=== PATIENT | female | born 1955 | race Two or more races ===

== ENCOUNTER 2022-10-17 06:35 | Emergency (ER) | payer OTHER ==
[~2022-10-17] VITALS: Ht 162.6 cm; Wt 99.8 kg
--- NOTE | 2022-10-17 06:40 | NUR ---
[id number] C/O ABD PAIN RADIATING TO BACK X TODAY. DENIES N/V. PT AAOX4, MOANING, CRYING. PLACED IN BED, VITALS CHECKED.
[2022-10-17] MEDS ORDERED: ONDANSETRON HCL/PF 4 MG/2 ML VIAL ONE ×2 (06:58→08:49)
[2022-10-17] MEDS ORDERED: MORPHINE SULFATE INJ 4 MG/ML DISP.SYRIN ONE (06:58)
[2022-10-17] MEDS ORDERED: MORPHINE SULFATE INJ 2 MG/ML DISP.SYRIN IV ONE ×2 (07:00→08:00)
[2022-10-17] MEDS ORDERED: IV NS 0.9% 500 ML BAG IV ONE (07:00)
[2022-10-17] MEDS ORDERED: ONDANSETRON HCL/PF 4 MG/2 ML VIAL IVP ONE (07:00)
--- NOTE | 2022-10-17 07:08 | NUR ---
20GA TO RIGHT FOREARM ESTABLISHED, BLOOD WORK COLLECTED & SENT TO LAB
--- NOTE | 2022-10-17 07:23 | NUR ---
URINE CUP OFFERED
[2022-10-17 07:48] LABS: CALCIUM, SERUM 9.4 mg/dL (8.5-10.1)
[2022-10-17 07:55] LABS: ALBUMIN 3.6 g/dL (3.4-5.0); BILIRUBIN,DIRECT 0.1 mg/dL (0.0-0.2); BILIRUBIN,TOTAL 0.4 mg/dL (0.2-1.0); TOTAL PROTEIN, SERUM 7.7 g/dL (6.4-8.2)
[2022-10-17 07:56] LABS: BASOPHILS % (AUTO) 0.6 % (0.0-2.0); EOSINOPHILS % (AUTO) 3.7 % (0.0-6.0); HEMATOCRIT 40 % (33-45); HEMOGLOBIN 13.4 g/dL (11.5-14.8); LYMPHOCYTES # (AUTO) 1.5 K/uL (0.8-4.8); LYMPHOCYTES % (AUTO) 18.2 % (20.0-44.0); MEAN CORPUSCULAR HGB CONC 34 g/dl (31.0-36.0); MEAN CORPUSCULAR VOLUME 89 fL (82-100); MONOCYTES # (AUTO) 0.4 K/uL (0.1-1.30); MONOCYTES % (AUTO) 5.4 % (2.0-12.0); NEUTROPHILS # (AUTO) 5.9 K/uL (1.8-8.9); NEUTROPHILS % (AUTO) 72.1 % (43.0-81.0); PLATELET COUNT (AUTO) 255 K/uL (150-450); WHITE BLOOD COUNT (AUTO) 8.1 K/uL (4.3-11.0)
--- NOTE | 2022-10-17 07:56 | NUR ---
PT UNABLE TO PROVIDE URINE AT THIS TIME, WILL ENCOURAGE AGAIN AT A LATER TIME.
[2022-10-17] MEDS ORDERED: MORPHINE SULFATE INJ 2 MG/ML DISP.SYRIN ONE (07:57)
--- NOTE | 2022-10-17 08:36 | NUR ---
URINE COLLECTED AND SENT
--- NOTE | 2022-10-17 08:38 | NUR ---
ULTRASOUND AT BEDSIDE
[2022-10-17] MEDS ORDERED: IBUP-1957 PO (08:49)
[2022-10-17] MEDS ORDERED: ONDA4TAB5 PO (08:49)
[2022-10-17] MEDS ORDERED: KETOROLAC TROMETHAMINE INJ 30 MG/ML VIAL ONE (08:55)
[2022-10-17] MEDS ORDERED: ONDANSETRON HCL/PF - ER 4 MG/2 ML VIAL IV ONE (09:00)
[2022-10-17] MEDS ORDERED: KETOROLAC TROMETHAMINE INJ 30 MG/ML VIAL IV ONE (09:00)
[2022-10-17 09:03] VITALS: BP 142/70
--- NOTE | 2022-10-17 09:03 | NUR ---
IV removed. Catheter intact and site benign. Pressure and 4x4 applied to site. No bleeding noted.Patient discharged to home in stable condition. Written and verbal after care instructions given. Patient verbalizes understanding of instruction.
[2022-10-17 09:50] LABS: BILIRUBIN,URINE NEGATIVE (NEGATIVE); COLOR,URINE DARK YELLOW (YELLOW); LEUKOCYTE ESTERASE ,URINE NEGATIVE (NEGATIVE); NITRITE, URINE POSITIVE (NEGATIVE); PH,URINE 5.5 (5.0-8.0); PROTEIN,URINE 1+ mg/dl (NEGATIVE); UGLUCOSE TRACE mg/dL (NEGATIVE)
[2022-10-17 09:51] LABS: BACTERIA,URINE Moderate /HPF (None Seen); SQUAMOUS EPITHELIAL CELL,UR Few /HPF (None Seen)
== END 2022-10-17 09:04 | disposition home or self-care (01) ==
LOC: ER 06:40
DX: K80.20 Calculus of gallbladder without cholecystitis without obstruction (principal); I10 Essential (primary) hypertension; E11.9 Type 2 diabetes mellitus without complications; Z79.899 Other long term (current) drug therapy
CPT/HCPCS: 99285; 96374; 76705; 96361; 96375; 96376; 85025; 80048; 87086; 83690; 80076; 81001; 36415; J2270 ×2; J1885; J2405 ×3; J7040